=== PATIENT | male | born 1955 | race Caucasian/White ===

== ENCOUNTER → 2016-06-20 | Outpatient (REF) ==
[~2016-06-20] MED LIST: AMILORIDE/HCTZ1 TAB PO; FLEXERIL 1010 MG/TAB PO; HCTZ/TRIAMTEREN1 TAB PO; NAPROSYN500 MG PO; NORCO 325 MG-51 TAB PO; TYLENOL 500MG500 MG PO
[2016-06-20 20:08] LABS: THYROID STIMULATING HORMONE 1.66 uIU/mL (0.465-4.680)
[2016-06-20 20:17] LABS: PSA-TOTAL 0.51 ng/mL (0-4)
== END ==
LOC: ZLAB.WCH 18:53
PROVIDERS: Internal Medicine
DX: Z01.89 Encounter for other specified special examinations (principal)
CPT/HCPCS: G0103

== ENCOUNTER → 2017-07-04 | Outpatient (REF) | LOC: ZLAB.WCH 08:40 | DX: Z01.89 Encounter for other specified special examinations (principal) | CPT/HCPCS: G0103 ==